=== PATIENT | female | born 1975 ===

== ENCOUNTER 2020-10-20 05:20 | Day surgery (SDC) | payer OTHER ==
[~2020-10-20 05:20] MED LIST: PROGESTERONE200 MG VAG; PROMETRIUM200 MG PO
== END 2020-10-20 13:45 | disposition home or self-care (01) ==
LOC: CIR.AMB 05:20
PROVIDERS: ATTEND Specialist
DX: N87.1 Moderate cervical dysplasia (principal); Z20.822 Contact with and (suspected) exposure to COVID-19